=== PATIENT | female | born 2000 | race Caucasian/White ===

== ENCOUNTER 2018-03-24 23:59 | Emergency (ER) | payer MEDICAID ==
[~2018-03-24] VITALS: Ht 154.9 cm; Wt 68.5 kg
[2018-03-25] VITALS: BP 125/90
--- NOTE | 2018-03-25 00:05 | NUR ---
PT TAKEN TO BED 8
--- NOTE | 2018-03-25 00:10 | NUR ---
PT PRESENTED ER WITH C/O PAIN TO THE LEFT SIDE OF FACE X 1 DAY. PT HAS SOME FACIAL SWELLING TO THE LEFT CHEEK. PT STATED THE SITE GETS HOT AND SLIGHTLY RED. PT HAS NO ALLERGIES AND MEDICAL HX IS ASTHMA. PT IS A/O X 4. SKIN IS PINK/WARM/DRY; EVEN AND STEADY GAIT;NO FEVER AT THIS TIME; PATIENT STATES PAIN OF 8/10 AT THIS TIME; VSS; PATIENT POSITIONED FOR COMFORT; HOB ELEVATED; BEDRAILS UP X2; BED DOWN. ER MD MADE AWARE OF PT STATUS.
--- NOTE | 2018-03-25 00:20 | NUR ---
Dr. Siu evaluating patient at bedside.
[2018-03-25] MEDS ORDERED: IBUPROFEN 800 MG TAB PO ONE (00:25)
[2018-03-25] MEDS ORDERED: SULFAMETH/TRIMETH DS 800/160MG 1 TAB PO ONE (00:25)
[2018-03-25] MEDS ORDERED: IBUPROFEN 800 MG TAB ONE (00:48)
[2018-03-25] MEDS ORDERED: SULFAMETH/TRIMETH DS 800/160MG 1 TAB ONE (00:52)
[2018-03-25 01:00] VITALS: BP 125/90
--- NOTE | 2018-03-25 01:00 | NUR ---
Patient discharged with v/s stable. Written and verbal after care instructions given and explained. Patient alert, oriented and verbalized understanding of instructions. Ambulatory with to car. All questions addressed prior to discharge. ID band removed. Patient advised to follow up with PMD. Rx of MOTRIN, DOXYCYCLINE was given. Patient educated on indication of medication including possible reaction and side effects. Opportunity to ask questions provided and answered.
== END 2018-03-25 01:00 | disposition home or self-care (01) ==
LOC: MED 23:59
DX: L98.8 Other specified disorders of the skin and subcutaneous tissue (principal)
CPT/HCPCS: 99283